=== PATIENT | male | born 1975 | race Caucasian/White ===

== ENCOUNTER 2016-10-24 12:53 | Emergency (ER) | payer MEDICAID ==
[~2016-10-24] VITALS: Ht 175.3 cm; Wt 90.9 kg
[~2016-10-24 12:53] MED LIST: CLOZ25TA4 PO; DIVA500T69 PO; QUET200T PO
[2016-10-24 12:54] VITALS: BP 125/84
== END 2016-10-24 14:12 | disposition home or self-care (01) ==
LOC: EMS 12:55
DX: H60.91 Unspecified otitis externa, right ear (principal); H61.21 Impacted cerumen, right ear; F17.210 Nicotine dependence, cigarettes, uncomplicated
CPT/HCPCS: 99283